=== PATIENT | female | born 1960 | race Caucasian/White ===

== ENCOUNTER 2021-08-01 07:12 | Emergency (ER) | payer BC ==
[~2021-08-01] VITALS: Ht 172.7 cm; Wt 74.8 kg
--- NOTE | 2021-08-01 08:00 | NUR ---
BIBS C/O COUGH AND FEVER STARTING WEDNESDAY, CONSULTED WITH TELEMD AND WAS PRESCRIBED AZITHROMAX AND TESSALON ON WED FOR BACTERIAL PNEUMONIA, DID NOT HELP. TO ER BED 7, HOOKED TO MONITOR, CHANGED TO HOSP GOWN, WARM BLABKET PROVIDED. PATIENT AAO x 4. BREATHING EVEN AND UNLABORED. AWAITING MD STARKS
--- NOTE | 2021-08-01 08:06 | NUR ---
DR VIVEROS AT BEDSIDE
[2021-08-01] MEDS ORDERED: CEFTRIAXONE 1GM BAG (ER ONLY) 50 ML IV ONE (08:16)
--- NOTE | 2021-08-01 08:28 | NUR ---
Kulwinder Reid#20 ESTABLISHED. LABS AND SWABS DONE. SENT TO LAB.
[2021-08-01] MEDS ORDERED: CEFTRIAXONE 1GM BAG (ER ONLY) 1 GM/50 ML PIGGYBACK IV ONE (08:30)
[2021-08-01] MEDS ORDERED: AZITHROMYCIN 500 MG in IV D5W 250 ML IV ONE (08:30)
[2021-08-01 08:35] LABS: BASOPHILS % (AUTO) 0.3 % (0.0-2.0); EOSINOPHILS % (AUTO) 1.3 % (0.0-6.0); HEMATOCRIT 38 % (33-45); HEMOGLOBIN 13.3 g/dL (11.5-14.8); LYMPHOCYTES # (AUTO) 0.6 K/uL (0.8-4.8); LYMPHOCYTES % (AUTO) 17.1 % (20.0-44.0); MEAN CORPUSCULAR HGB CONC 35 g/dl (31.0-36.0); MEAN CORPUSCULAR VOLUME 86 fL (82-100); MONOCYTES # (AUTO) 0.2 K/uL (0.1-1.30); MONOCYTES % (AUTO) 5.7 % (2.0-12.0); NEUTROPHILS # (AUTO) 2.7 K/uL (1.8-8.9); NEUTROPHILS % (AUTO) 75.6 % (43.0-81.0); PLATELET COUNT (AUTO) 126 K/uL (150-450); RED BLOOD CELL COUNT(AUTO) 4.46 MIL/uL (4.0-5.2); WHITE BLOOD COUNT (AUTO) 3.6 K/uL (4.3-11.0)
[2021-08-01 08:42] LABS: CALCIUM, SERUM 8.7 mg/dL (8.5-10.1)
[2021-08-01] MEDS ORDERED: IV NS 0.9% 1,000 ML IV ONE (09:00)
--- NOTE | 2021-08-01 11:01 | NUR ---
IV removed. Catheter intact and site benign. Pressure and 4x4 applied to site. No bleeding noted.Patient discharged to home in stable condition. Written and verbal after care instructions given. Patient verbalizes understanding of instruction.
[2021-08-01 11:02] VITALS: BP 121/81
== END 2021-08-01 11:02 | disposition home or self-care (01) ==
LOC: ER 07:24
DX: J06.9 Acute upper respiratory infection, unspecified (principal); B97.89 Other viral agents as the cause of diseases classified elsewhere; R50.9 Fever, unspecified; Z20.822 Contact with and (suspected) exposure to COVID-19; Z88.1 Allergy status to other antibiotic agents
CPT/HCPCS: 36415; 71045; 80048; 85025; 87426; 87804; 96365; 96368; 99284; C9803; J0456; J0696; J7030; J7060

== ENCOUNTER 2022-04-12 20:56 | Emergency (ER) | payer BC, OTHER ==
[~2022-04-12] VITALS: Ht 175.3 cm; Wt 77.1 kg
[2022-04-12 21:30] VITALS: BP 150/117
--- NOTE | 2022-04-12 21:30 | NUR ---
Bibself from home c/o cough and r ear pain since wednesday, on steroids meds orally. Pt a/ox4. VSS
[2022-04-12] MEDS ORDERED: BENZ-13 PO (21:52)
[2022-04-12] MEDS ORDERED: AMOX500T2 PO (21:52)
--- NOTE | 2022-04-12 21:58 | NUR ---
Patient discharged to home in stable condition. Written and verbal after care instructions given. Patient verbalizes understanding of instruction.
== END 2022-04-12 21:58 | disposition home or self-care (01) ==
LOC: ER 21:00
DX: J06.9 Acute upper respiratory infection, unspecified (principal); J32.9 Chronic sinusitis, unspecified; Z86.16 Personal history of COVID-19; Z88.1 Allergy status to other antibiotic agents